=== PATIENT | female | born 1990 ===

== ENCOUNTER 2016-08-19 09:06 | Observation (INO) | payer MEDICAID ==
[2016-08-19 09:15] VITALS: BMI 21.5
[2016-08-19 09:19] VITALS: TEMP 97.8
[2016-08-19] MEDS ORDERED: Sodium Chloride 0.9% 1,000 ML IV STA (09:42)
[2016-08-19 09:48] LABS: URINE BILIRUBIN NEGATIVE (NEGATIVE); URINE BLOOD SMALL (NEGATIVE); URINE GLUCOSE (UA) NEGATIVE (NEGATIVE); URINE KETONE NEGATIVE (NEGATIVE); URINE LEUKOCYTE ESTERASE MODERATE Leu/uL (NEGATIVE); URINE PROTEIN 30 mg/dL (<30 mg/dL)
[2016-08-19 09:50] LABS: URINE APPEARANCE SL CLOUDY (CLEAR); URINE COLOR YELLOW (YELLOW)
--- NOTE | 2016-08-19 09:51 | ED PDOC ---
Arrival/HPI - General Chief Complaint: GI Problem Time Seen by Provider: 08/19/16 09:40 Historian: Patient - History of Present Illness Narrative History of Present Illness (Text): 08/19/16 09:45 Stephanie Mckenzie is a 26 year old female, with history of ovarian cyst, presents to the emergency department complaining of epigastric abdominal discomfort associated with nausea, vomiting and loss of appetite since yesterday morning. Patient states she is currently on anti-fungal for an vaginal yeast infection. Reports last menstrual period was 2 weeks ago. Describes abdominal pain as a pressure sensation with intermittent episodes of sharp pain, immediately prior to vomiting. Denies any fever, chills, headache, dizziness, chest pain, shortness of breath, diarrhea, hematemesis, blood in stool, urinary symptoms, or any other complaints at this time. PMD: . Time/Duration: Other (since yesterday ) Symptom Course: Unchanged Severity Level: Mild Activities at Onset: Light Past Medical History - Provider Review Nursing Documentation Reviewed: Yes - Infectious Disease Hx of Infectious Diseases: None - Tetanus Immunization Tetanus Immunization: Unknown - Past Medical History Past Medical History: No Previous - Pulmonary Hx Asthma: Yes - Psychiatric Hx Depression: No Hx Emotional Abuse: No Hx Physical Abuse: No Hx Substance Use: No - Past Surgical History Past Surgical History: No Previous - Surgical History Hx Section: Yes (x1) Other/Comment: Ovarian cyst removal - Anesthesia Hx Anesthesia: Yes Hx Anesthesia Reactions: No Hx Malignant Hyperthermia: No - Suicidal Assessment Feels Threatened In Home Enviroment: No Family/Social History - Physician Review Nursing Documentation Reviewed: Yes Family/Social History: No Known Family HX Smoking Status: Never Smoked Hx Alcohol Use: Yes Frequency of alcohol use: Socially Hx Substance Use: No Allergies/Home Meds Allergies/Adverse Reactions: Allergies No Known Allergies Allergy (Verified 05/19/13 13:40) Home Medications: Home Meds Medication Instructions Recorded Confirmed Home Med [Home Med] 1 tab PO DAILY 08/19/16 08/19/16 Review of Systems - Physician Review All systems were reviewed & negative as marked: Yes - Review of Systems Constitutional: Normal. absent: Fatigue, Fevers Respiratory: Normal. absent: SOB, Cough Cardiovascular: Normal. absent: Chest Pain, Palpitations Gastrointestinal: Abdominal Pain, Nausea, Vomiting, Appetite Changes (decreased appetite ). absent: Diarrhea Genitourinary Female: Normal, Vaginal Discharge. absent: Dysuria, Frequency, Hematuria, Vaginal Bleeding Neurological: Normal. absent: Headache, Dizziness Psychiatric: Normal Physical Exam - Physical Exam Narrative Physical Exam (Text): Constitutional: No acute distress. Head: Normocephalic. Atraumatic. Eyes: PERRL. ENT: Moist mucous membranes. Neck: Supple. Cardiovascular: Regular rate. Chest: No tenderness. Respiratory: Clear to auscultation bilaterally. GI: Soft. Nondistended. RLQ tenderness with guarding Back: No CVA tenderness. Musculoskeletal: No tenderness or swelling of extremities. Skin: No rash. Neurologic: Alert, no focal deficit. Vital Signs Reviewed: Yes Vital Signs Temp Pulse Resp BP Pulse Ox 08/19/16 12:39 89 18 115/75 98 08/19/16 11:06 97 H 18 117/79 98 08/19/16 09:18 97.8 F 106 H 18 119/82 98 Temperature: Afebrile Blood Pressure: Normal Pulse: Tachycardic Respiratory Rate: Normal Appearance: Positive for: Well-Appearing, Non-Toxic, Comfortable Pain Distress: None Mental Status: Positive for: Alert and Oriented X 3 Medical Decision Making ED Course and Treatment: 08/19/16 09:52 Impression: A 26 year old female who presents to the emergency department complaining of abdominal pain associated with nausea, vomiting and loss of appetite. Plan: -- Labs -- CT abdomen pelvis -- Zofran -- IV fluids -- Urine culture -- Urinalysis -- Reassess and disposition Progress Notes: - Lab Interpretations Lab Results: 08/19/16 09:50 08/19/16 09:50 Lab Results 08/19/16 09:50: Blood Type O POSITIVE, Antibody Screen Negative, BBK History Checked Patient has bt 08/19/16 09:50: Sodium 135, Potassium 4.0, Chloride 101, Carbon Dioxide 24, Anion Gap 14, BUN 19, Creatinine 0.9, Est GFR ( Amer) > 60, Est GFR (Non- Af Amer) > 60, Random Glucose 91, Calcium 9.1, Total Bilirubin 1.0, AST 21, ALT 28, Alkaline Phosphatase 57, Total Protein 7.6, Albumin 4.2, Globulin 3.4, Albumin/Globulin Ratio 1.2, Lipase 42 08/19/16 09:50: PT 11.5, INR 1.06, APTT 32.0 H 08/19/16 09:50: WBC 5.2, RBC 4.54, Hgb 13.6, Hct 40.1, MCV 88.3, MCH 30.0, MCHC 33.9, RDW 13.0, Plt Count 225, MPV 10.0, Gran % 79.4 H, Lymph % (Auto) 13.5 L, [place] % (Auto) 6.9 H, Eos % (Auto) 0.0 L, Baso % (Auto) 0.2, Gran # 4.11, Lymph # 0.7 L, [place] # 0.4, Eos # 0.0, Baso # 0.01 08/19/16 09:46: Urine HCG, Qual Negative 08/19/16 09:46: Urine Color Yellow, Urine Appearance Sl cloudy, Urine pH 6.0, Ur Specific [place] >= 1.030, Urine Protein 30 H, Urine Glucose (UA) Negative, Urine Ketones Negative, Urine Blood Small H, Urine Nitrate Negative, Urine Bilirubin Negative, Urine Urobilinogen 1.0 H, Ur Leukocyte Esterase Moderate H, Urine RBC 1 - 3, Urine WBC 15 - 20, Ur Epithelial Cells 4 - 5, Urine Bacteria Small - RAD Interpretation Radiology Orders: 08/19/16 09:43 ABD PELVIS PO & IV CONTRAST [CT] Stat - Medication Orders Current Medication Orders: Discontinued Medications Sodium Chloride (Sodium Chloride 0.9%) 1,000 mls @ 999 mls/hr IV .Q1H1M STA Stop: 08/19/16 10:42 Last Admin: 08/19/16 09:49 Dose: 999 mls/hr Iohexol (Omnipaque 240 (50 Ml)) Confirm Administered Dose 50 ml .ROUTE .STK-MED ONE Stop: 08/19/16 10:12 Iohexol (Omnipaque 350 100 Ml) Confirm Administered Dose 350 mg .ROUTE .STK-MED ONE Stop: 08/19/16 10:26 Ondansetron HCl (Zofran Inj) 8 mg IVP STAT STA Stop: 08/19/16 09:43 Last Admin: 08/19/16 09:48 Dose: 8 mg ED OBSERVATION Discharge: Yes Date of observation admission: 08/19/16 Time of observation admission: 10:13 - Observation admission statement Patient is being placed in observation because:: Abdominal pain - Goals of Observation Goals of observation are:: Pending CT, reevaluation and disposition - Progress Note Progress Note: 1013 In no acute distress. 1200 Labs unremarakble. 1340 Patient Name / ID : [id number] Do / [id number] Exam Date : 08/19/2016 12:56:29 ( Approved ) Study Comment : Sex / Age : F / 26Y Creator : Vineet Olivier MD Dictator : Vineet Olivier MD Metal Welder : Lead Data Architect : Vineet Olivier MD Approver2 : Report Date : 08/19/2016 13:20:38 My Comment : PROCEDURE: CT Abdomen and Pelvis with contrast HISTORY: epigastric pain, vomiting, RLQ tenderness COMPARISON: None. TECHNIQUE: Contrast dose: 100 cc of Omni 350 Radiation dose: Total exam DLP = 198 mGy-cm. This CT exam was performed using one or more of the following dose reduction techniques: Automated exposure control, adjustment of the mA and/or kV according to patient size, and/or use of iterative reconstruction technique. FINDINGS: LOWER THORAX: Unremarkable. LIVER: Unremarkable. No gross lesion or ductal dilatation. GALLBLADDER AND BILE DUCTS: Unremarkable. PANCREAS: Unremarkable. No gross lesion or ductal dilatation. SPLEEN: Unremarkable. ADRENALS: Unremarkable. No mass. KIDNEYS AND URETERS: Unremarkable. No hydronephrosis. No solid mass. VASCULATURE: Unremarkable. No aortic aneurysm. BOWEL: There is a short segment of abnormal small bowel with mural thickening. This can be seen on coronal image 25 and axial image 101. This may represent enteritis or inflammatory bowel disease. The remaining small bowel is unremarkable. There is no obstruction. The colon is unremarkable. APPENDIX: No evidence of appendicitis PERITONEUM: Unremarkable. No free fluid. No free air. LYMPH NODES: Unremarkable. No enlarged lymph nodes. BLADDER: Unremarkable. REPRODUCTIVE: Unremarkable. BONES: No acute fracture. OTHER FINDINGS: Minimal free fluid IMPRESSION: Short segment of abnormal small bowel with mural thickening suspicious for enteritis or inflammatory bowel disease. The study is otherwise unremarkable. Patient feels well, no acute distress. Will discharge home, instructed to f/u GI for persistent symptoms, return to ER for worsening pain, fever, vomiting, dyspnea, or any other problem. - Scribe Statement The provider has reviewed the documentation as recorded by the Justyn Lindo Provider Scribe Attestation: All medical record entries made by the Justyn were at my direction and personally dictated by me. I have reviewed the chart and agree that the record accurately reflects my personal performance of the history, physical exam, medical decision making, and the department course for this patient. I have also personally directed, reviewed, and agree with the discharge instructions and disposition. Disposition/Present on Arrival - Present on Arrival Any Indicators Present on Arrival: No History of DVT/PE: No History of Uncontrolled Diabetes: No Urinary Catheter: No History of Decub. Ulcer: No History Surgical Site Infection Following: None - Disposition Have Diagnosis and Disposition been Completed?: Yes Diagnosis: Enteritis, UTI (urinary tract infection) Disposition: HOME/ ROUTINE Disposition Time: 13:45 Patient Plan: Discharge Patient Problems: Current Active Problems Problem Status Onset Enteritis Acute UTI (urinary tract infection) Acute Condition: STABLE
[2016-08-19 10:02] LABS: ADD MANUAL DIFF? NO
[2016-08-19 10:07] LABS: BASO # 0.01 K/mm3 (0.0-2.0); BASO % 0.2 % (0.0-3.0); GRAN # 4.11 (1.4-6.5); GRAN % 79.4 % (50.0-68.0); HEMATOCRIT 40.1 % (36.0-48.0); LYMPH # 0.7 (1.2-3.4); LYMPH % 13.5 % (22.0-35.0); MEAN CELL VOLUME 88.3 fL (80.0-105.0); MEAN CORPUSCULAR HGB CONC 33.9 g/dl (31.0-37.0); MONO # 0.4 (0.1-0.6); MONO % 6.9 % (1.0-6.0); PLATELET COUNT 225 10^3/uL (120.0-450.0); WHITE BLOOD COUNT 5.2 10^3/ul (4.5-11.0)
[2016-08-19 10:09] LABS: URINE BACTERIA SMALL (NEG); URINE WBC 15 - 20 /hpf (0-6)
[2016-08-19] MEDS ORDERED: Iohexol 240 (50 ml) ONE (10:11)
[2016-08-19 10:15] LABS: ALB/GLOB RATIO 1.2 (1.1-1.8); ALKALINE PHOSPHATASE 57 U/L (38-133); ALT/SGPT 28 U/L (7-56); AST/SGOT 21 U/L (15-39); BLOOD UREA NITROGEN 19 mg/dL (7-21); CALCIUM 9.1 mg/dL (8.4-10.5); CARBON DIOXIDE 24 mmol/L (21-33); CHLORIDE 101 mmol/L (98-107); GFR AFRICAN-AMERICAN > 60; GLUCOSE,RANDOM 91 mg/dL (70-110); INR 1.06 (0.93-1.08); LIPASE 42 U/L (23-300); SODIUM 135 mmol/L (132-148); TOTAL PROTEIN 7.6 g/dL (5.8-8.3)
[2016-08-19] MEDS ORDERED: Iohexol 350 MG/100 ML VIAL ONE (10:25)
--- NOTE | 2016-08-19 13:22 | CT ---
PROCEDURE: CT Abdomen and Pelvis with contrast HISTORY: epigastric pain, vomiting, RLQ tenderness COMPARISON: None. TECHNIQUE: Contrast dose: 100 cc of Omni 350 Radiation dose: Total exam DLP = 198 mGy-cm. This CT exam was performed using one or more of the following dose reduction techniques: Automated exposure control, adjustment of the mA and/or kV according to patient size, and/or use of iterative reconstruction technique. FINDINGS: LOWER THORAX: Unremarkable. LIVER: Unremarkable. No gross lesion or ductal dilatation. GALLBLADDER AND BILE DUCTS: Unremarkable. PANCREAS: Unremarkable. No gross lesion or ductal dilatation. SPLEEN: Unremarkable. ADRENALS: Unremarkable. No mass. KIDNEYS AND URETERS: Unremarkable. No hydronephrosis. No solid mass. VASCULATURE: Unremarkable. No aortic aneurysm. BOWEL: There is a short segment of abnormal small bowel with mural thickening. This can be seen on coronal image 25 and axial image 101. This may represent enteritis or inflammatory bowel disease. The remaining small bowel is unremarkable. There is no obstruction. The colon is unremarkable. APPENDIX: No evidence of appendicitis PERITONEUM: Unremarkable. No free fluid. No free air. LYMPH NODES: Unremarkable. No enlarged lymph nodes. BLADDER: Unremarkable. REPRODUCTIVE: Unremarkable. BONES: No acute fracture. OTHER FINDINGS: Minimal free fluid IMPRESSION: Short segment of abnormal small bowel with mural thickening suspicious for enteritis or inflammatory bowel disease. The study is otherwise unremarkable.
[2016-08-19 13:46] VITALS: BP 117/80; PULSE 78; RESP 17; O2SAT 99
== END 2016-08-19 13:45 | disposition home or self-care (01) ==
LOC: ED 09:06 → EROBSV 10:13
PROVIDERS: ADMIT Student in an Organized Health Care Education/Training Program; ATTEND Student in an Organized Health Care Education/Training Program
DX: N39.0 Urinary tract infection, site not specified (principal); K52.9 Noninfective gastroenteritis and colitis, unspecified
CPT/HCPCS: 74177; 80053; 81001; 83690; 84703; 85025; 85610; 85730; 86850; 86900; 96361; 96374; 99285; G0378; J2405; J7040; Q9966; Q9967